=== PATIENT | female | born 1945 | race Caucasian/White ===

== ENCOUNTER 2017-02-12 17:48 | Emergency (ER) | payer MEDICARE, OTHER ==
[~2017-02-12] VITALS: Ht 165.1 cm; Wt 72.0 kg
[~2017-02-12 17:48] MED LIST: ARIP2TAB10 PO; ASPI-973 PO; CALC600T12 PO; CHOL200047 PO; FOLI1TAB50 PO; LISI-567 PO; MELA1TAB16 PO; METO25TA6 PO; POTA10TA7 PO; QUET300T PO; TOPI50TA88 PO; WARF7.5T4 PO
[2017-02-12 17:54] VITALS: BP 179/78; RESP 18; O2SAT 99
--- NOTE | 2017-02-12 19:01 | ED.REPORT ---
HPI-General Illness Date of Service Feb 12, 2017 ED Provider: Brayden Norton Patient is a 71 year old female on Warfarin who presents to the ED after being referred by urgent care complaining of a persistent, R sided nose bleed. She reports that she has been blowing her nose fairly frequently which may have caused her nosebleed. She had her INR checked today and it was approximately 3. While she was waiting to be seen, her nose stopped bleeding. She denies headache , lightheadedness, or any other symptoms. Nursing Notes Stated Complaint: BLOODY NOSE Chief Complaint: ENT & Mouth Nursing Notes Reviewed: Yes Allergies: Coded Allergies: No Known Allergies (Unverified , 12/19/16) Scheduled Aripiprazole (Abilify) 2 Mg Tablet 2 MG PO DAILY Aspirin (Aspirin) 81 Mg Tablet 81 MG PO DAILY Calcium Carbonate (Calcium) 600 Mg Tablet 600 MG PO DAILY Cholecalciferol (Vitamin D3) (Vitamin D3) 2,000 Unit Capsule 2,000 UNIT PO DAILY Lisinopril (Lisinopril) 20 Mg Tablet 20 MG PO DAILY Melatonin/Pyridoxine (Melatonin 5 mg Tablet) 1 Each Tablet 1 EACH PO HS Metoprolol Tartrate (Metoprolol Tartrate) 25 Mg Tablet 25 MG PO BID Mv,Ca,Min/Iron Fum/FA/Vit K (Multi For Her Tablet) 1 Each Tablet 1 EACH PO DAILY Potassium Chloride ER (Klor-Con 10) 10 Meq Tablet 10 MEQ PO DAILY Quetiapine Fumarate (Seroquel) 300 Mg Tablet 300 MG PO HS Topiramate (Topiramate) 50 Mg Tablet 50 MG PO QAM Topiramate (Topiramate) 50 Mg Tablet 100 MG PO QPM Warfarin Sodium (Warfarin Sodium) 7.5 Mg Tablet 7.5 MG PO DAILY General Time Seen by MD: 19:01 Chief Complaint Other (Nose bleed) Hx Obtained From: Patient Arrived By: Walk-in Sudden in Onset?: Yes Recent Healthcare: Recent doctor visit Similar Sx Previous: Yes Past Medical History Past Medical History Notes: On Warfarin Past Medical History Bipolar HTN Carcinogenic lung tumor Reports: Cancer (Uterine) Reports: Atrial fibrillation Past Surgical History Bowel obstruction Lung tumor removal Reports: Hysterectomy Smoking History Former Smoker Ambulatory Status Independent Review of Systems Full Review of Systems Ears / Nose / Throat: Reports: Nose bleeding Neurologic: Denies: Headache, Lightheaded Complete sys rev & neg: except as marked. Physical Exam Vital Signs Vital Signs Date Time Temp Pulse Resp B/P Pulse Ox O2 Delivery O2 Flow Rate FiO2 02/12/17 19:26 61 18 180/78 99 Room Air 02/12/17 17:54 36.1 58 18 179/78 99 Room Air Initial VS: Reviewed General/Constitutional: Well-developed, Well-nourished Head / Eyes: Atraumatic, Normocephalic Neck: Full range of motion Respiratory: No respiratory distress Abdomen / GI: Soft, Non-tender Skin: Warm, Dry Neurologic: Alert, Oriented, Nonfocal Psychiatric: Mood/affect normal, Behavior normal, Normal thought content ENT: Nose exam NL, No sinus tenderness Re-Eval/Medical Decision Med Decision/Clinical Course All bleeding has stopped and Ayana looks well. She is mildly hypertensive but this came down with observation. She declined having a packing placed or having any further labs. Her INR was drawn today was 2.5. She will return if she has any other bleeding. I will give her ear nose and throat referral for possible cautery. Time of Eval: 19:04 Re-Evaluation/Progress Note: Discussed plan for discharge and plan for if nosebleed presents again. Patient understands and agrees with plan. All questions addressed at this time. Counseled Regarding: Diagnosis, Need for follow-up, When/why to return to ED Discharge & Departure Primary Impression: Epistaxis Additional Impression: Warfarin-induced coagulopathy Disposition: Home Patient Instructions: Epistaxis (ED) Additional Instructions: You may continue to take your warfarin as directed. However if you begin bleeding again then pinch off your nostril and come back to the emergency department and we will check more labs and place the packing as we discussed. Otherwise follow-up with your primary care physician or the referred ear nose and throat doctor to have your nose checked next week. Do not hesitate to return if any problems or any worsening symptoms. Referrals: Surendra Barrientos MD (PCP) Dino Mason MD Scribe Attestation Portions of this note were transcribed by Jacky Cerna. I, Dr. Norton personally performed the history, physical exam and medical decision-making; I reviewed and confirmed the accuracy of the information in the transcribed note. Signed by: Jacky Cerna 02/12/17, 1917 copies to: Surendra Barrientos MD, Todd P DO Feb 12, 2017 19:01 JACKY CERNA Feb 12, 2017 19:10
[2017-02-12 19:26] VITALS: BP 180/78; PULSE 61; RESP 18; O2SAT 99
== END 2017-02-12 19:20 | disposition home or self-care (01) ==
LOC: SED 17:48
DX: R04.0 Epistaxis (principal); I10 Essential (primary) hypertension; F31.9 Bipolar disorder, unspecified; I48.91 Unspecified atrial fibrillation; Z85.41 Personal history of malignant neoplasm of cervix uteri; Z79.01 Long term (current) use of anticoagulants; Z87.891 Personal history of nicotine dependence; Z79.82 Long term (current) use of aspirin

== ENCOUNTER 2017-05-15 12:29 | Inpatient (IN) | payer MEDICARE, OTHER ==
[~2017-05-15] VITALS: Ht 165.1 cm; Wt 71.7 kg
[~2017-05-15 12:29] MED LIST changes: -LISI-567 PO; +LISI30TA5 PO
[2017-05-15 12:34] VITALS: BP 210/93; PULSE 59; RESP 10; O2SAT 100
--- NOTE | 2017-05-15 12:45 | ED.REPORT ---
HPI-General Illness Date of Service May 15, 2017 ED Provider: Benito Clayton MD Patient is a 71 year old female with a history of lung cancer, hypertension and atrial fibrillation who presents to the ED complaining of chest pain. Primarily on the left side of her chest and not really radiating. Mild in severity. She thinks it started yesterday. Associated symptoms include left leg swelling that has been that way for the past 6 months and bilateral arm pain that she attributes to a fall she had 2 days ago. She's not sure if the chest pain is related to the fall. Patient denies shortness of breath or lightheadedness before her fall. She states that she took her blood pressure this morning and it was elevated (200/70). After talking to a nurse, her son told her to come to the ED. Patient initially thought to be on warfarin but it sounds as if she's stopped this recently. Hx somewhat limited as patient is a poor historian and story seems to change at times. Nursing Notes Stated Complaint: HIGH BLOOD PRESSURE,PAIN IN ARMS Chief Complaint: General Complaint Nursing Notes Reviewed: Yes Allergies: Coded Allergies: No Known Allergies (Unverified , 05/15/17) Scheduled Aripiprazole (Abilify) 2 Mg Tablet 2 MG PO HS Aspirin (Aspirin) 81 Mg Tablet 81 MG PO DAILY Lisinopril (Lisinopril) 30 Mg Tablet 30 MG PO DAILY Melatonin/Pyridoxine (Melatonin 5 mg Tablet) 1 Each Tablet 1 EACH PO HS Metoprolol Tartrate (Metoprolol Tartrate) 25 Mg Tablet 25 MG PO BID Potassium Chloride ER (Klor-Con 10) 10 Meq Tablet 10 MEQ PO DAILY Quetiapine Fumarate (Seroquel) 300 Mg Tablet 300 MG PO HS Topiramate (Topiramate) 50 Mg Tablet 50 MG PO QAM Topiramate (Topiramate) 50 Mg Tablet 100 MG PO QPM Warfarin Sodium (Warfarin Sodium) 7.5 Mg Tablet 7.5 MG PO DAILY General Time Seen by MD: 12:44 Chief Complaint Chest pain Hx Obtained From: Patient Arrived By: Walk-in Sudden in Onset?: Yes Onset Occurred: Yesterday Symptom Duration: Since onset Location: : Chest Quality: Painful Radiation: : Does not radiate Severity: Current: Mild Associated with: Denies: Difficulty breathing, Loss of consciousness Pertinent Negative: Pt denies other symptoms Pertinent Negative: Exacerbated by nothing Recent Healthcare: No recent hospitalization, Recent doctor visit Similar Sx Previous: No Past Medical History Past Medical History Notes: On Warfarin previously, recently stopped. Denies any pertinent family history. Past Medical History Bipolar HTN Carcinogenic lung tumor/lung cancer Reports: Atrial fibrillation Past Surgical History Bowel obstruction Lung tumor removal Reports: Hysterectomy Smoking History Former Smoker Social History Alcohol Use: "Social" Drug Use: Denies drug use Other Social History: Good social support (Lives with friends) Ambulatory Status Independent Review of Systems Full Review of Systems Constitutional: Denies: Chills, Fever Respiratory: Denies: Non-productive cough, Shortness of breath Cardiovascular: Reports: Chest pain Musculoskeletal: Reports: Extremity swelling Neurologic: Denies: Lightheaded Complete sys rev & neg: except as marked. Physical Exam Constitutional: Well-developed, well-nourished elderly female sitting up in bed. Not diaphoretic. Head: Normocephalic and atraumatic. Mouth/Throat: Oropharynx is clear and moist. No oropharyngeal exudate. Eyes: EOM are normal. Pupils are equal, round, and reactive to light. Neck: Supple, no tracheal deviation. No cervical spine tenderness. Cardiovascular: Normal rate, regular rhythm. Equal and intact distal pulses throughout. Pulmonary/Chest: Effort normal and breath sounds normal. No respiratory distress. Abdominal: Soft. No distension. There is no tenderness, rebound, or guarding. Bowel sounds present. Musculoskeletal: Range of motion grossly intact, moving all extremities. Trace edema to BLE. Neurological: AOx3. Grossly nonfocal exam. Strength and sensation intact and equal to bilateral upper and lower extremities. Skin: Warm and dry, no rashes or pallor appreciated. Ecchymosis to the left forearm that is improving. Psychiatric: Appropriate mood and affect. Behavior appears normal. Vital Signs Vital Signs Date Time Temp Pulse Resp B/P Pulse Ox O2 Delivery O2 Flow Rate FiO2 05/15/17 15:28 61 16 156/68 98 Room Air 05/15/17 14:28 56 15 176/72 98 Room Air 05/15/17 13:26 36.8 57 16 199/78 100 05/15/17 12:34 37.1 59 10 210/93 100 Room Air Initial VS: Reviewed Interpretation & Diagnostics Lab Results Interpretation Result Diagram: 05/16/17 0350 05/16/17 0350 Test 6/29/17 13:10 Neutrophils (%) (Auto) 62.1% (40-74) Lymphocytes (%) (Auto) 24.5% (14-46) Monocytes (%) (Auto) 11.4% (4-12) Eosinophils (%) (Auto) 1.2% (0-5) Basophils (%) (Auto) 0.6% (0-3) Prothrombin Time 10.0sec (8.1-12.5) Prothromb Time International Ratio 0.94ratio Magnesium Level 2.0mg/dL (1.6-2.6) Pro-B-Type Natriuretic Peptide 1448pg/mL (0-301) ECG Interpretation ECG Interpretation: Non specific ST changes T waves more prominent in anterior leads minimal ST elevation in inferior leads Prolonged SD interval Probable left atrial enlargement left ventricular hypertrophy inferior infarct, old Time: 12:55 Interpreted by: ED physician Normal ECG Interpretation: Normal rate (58), Normal sinus rhythm X-Ray Chest Interpretation Chest Xray Interpretation: IMPRESSION: 1. Linear scarring redemonstrated in the right lung base without acute cardiopulmonary disease. Dictated by: Gustavo Alaniz M.D. on 05/15/2017 at 13:21 Approved by: Gustavo Alaniz M.D. on 05/15/2017 at 13:22 View: Portable, 1 view Interpretation / Wet Read by: Interpret - Radiologist CT Head Interpretation IMPRESSION: 1. No acute intracranial process. 2. Moderate atrophy and chronic microvascular ischemic changes. Dictated by: Kaela García M.D. on 05/15/2017 at 15:26 Approved by: Kaela García M.D. on 05/15/2017 at 15:34 Interpretation / Wet Read by: Interpret - Radiologist CT Chest Interpretation IMPRESSION: 1. No evidence of pulmonary embolism. No dissection. 2. No effusions or consolidation. Dictated by: Kaela García M.D. on 05/15/2017 at 15:35 Approved by: Kaela García M.D. on 05/15/2017 at 15:41 Study type: CT pulm angiogram Interpretation / Wet Read by: Interpret - Radiologist Re-Eval/Medical Decision Med Decision/Clinical Course In summary, 71 yo F presenting to the ED for evaluation of vague L sided chest pain over the past day or two in the setting of higher blood pressure than usual. Only complaining of mild discomfort upon arrival, though she is somewhat of a poor historian and occasionally inconsistent with respect to her story. Systolic BPs in the 200s upon arrival. Given her recent falls, CT scan of her head was obtained and negative for acute intracranial abnormality. EKG does demonstrate some ST elevation in the inferior leads as well as more prominent T waves anteriorly as compared with previous; initial troponin 0.69. With her elevated BP and chest pain, decision made to obtain a CT angiogram to ensure no evidence of dissection - this was negative for aortic dissection or PE. Consults as per below; appreciate cardiology involvement. Patient started on heparin gtt here in the ED for acute coronary syndrome. I suspect that her hypertension is contributing to her acute coronary syndrome; started on nitroglycerin gtt shortly after initial assessment here in the ED. Admitted for further management and evaluation including of her hypertension, likely cardiac cath. Patient agreeable to plan, no further questions. Time of Eval: 16:00 Patient Status: Condition improved Re-Evaluation/Progress Note: Discussed results and plan for admit. Patient understands and agrees to plan. All questions were addressed. Consultation #1: Referral / Consult Name: Paul Benitez MD Consulted With: Cardiology Call Returned at: 13:32 Note: Consult with Dr. Benitez, who states that the EKG does not appear to be c/w STEMI Consultation #2: Referral / Consult Name: Paul Benitez MD Consulted With: Cardiology Call Returned at: 14:15 [employer] Hand: Agrees with eval, Agrees with plan Note: Consult with Dr. Benitez, who recommends CT. If negative, recommends heparin. Consultation #3: Referral / Consult Name: Karan Mason MD Consulted With: Hospitalist Call Returned at: 16:02 [employer] Hand: Agrees with eval, Agrees with plan, Accepts admit Counseled Regarding: Diagnosis, Lab results, Need for admission Discharge & Departure Primary Impression: NSTEMI (non-ST elevated myocardial infarction) Additional Impressions: Elevated troponin Hypertensive emergency Disposition: ADMITTED TO HOSPITAL Discharge Condition All VS Reviewed: Yes Condition: Stable Referrals: Surendra Barrientos MD (PCP) Crit Care Except Billable Proc Time Spent: 75-104 minutes Services Performed: Patient management by me, Time spent at bedside, Reviewing test results, Reviewing imaging, Discussing patient care, Documentation in record Critical Care Notes: Please see CELSO. Loree Attestation Portions of this note were transcribed by Roxanne Nicole. I, Dr. Clayton personally performed the history, physical exam and medical decision-making; I reviewed and confirmed the accuracy of the information in the transcribed note. Signed by: Loree Nascimento, 05/15/17 and 1610 copies to: Surendra Barrientos MD, William B MD May 15, 2017 12:45 Елена Nicole May 15, 2017 13:40 Елена Nicole May 15, 2017 13:40 Dictated by: Kaela García M.D. on 05/15/2017 at 15:35 Approved by: Kaela García M.D. on 05/15/2017 at 15:41 Study type: CT pulm angiogram Interpretation / Wet Read by: Interpret - Radiologist Re-Eval/Medical Decision Med Decision/Clinical Course Labs: CBC Hgb 11.7/MCHC 30.6/RDW 15.7 CMP: BUN 32/Ern-P-Hwschctvlpe Pept 1448 Trop .69 Time of Eval: 16:00 Patient Status: Condition improved Re-Evaluation/Progress Note: Discussed results and plan for admit. Patient understands and agrees to plan. All questions were addressed. Consultation #1: Referral / Consult Name: Paul Benitez MD Consulted With: Cardiology Call Returned at: 13:32 Note: Consult with Dr. Benitez, who states that the EKG does not appear acutely ischemic. Consultation #2: Referral / Consult Name: Paul Benitez MD Consulted With: Cardiology Call Returned at: 14:15 [employer] Hand: Agrees with eval, Agrees with plan Note: Consult with Dr. Benitez, who recommends CT. If negative, recommends heprain. Consultation #3: Referral / Consult Name: Karan Mason MD Consulted With: Hospitalist Call Returned at: 16:02 [employer] Hand: Agrees with eval, Agrees with plan, Accepts admit Counseled Regarding: Diagnosis, Lab results, Need for admission Discharge & Departure Primary Impression: NSTEMI (non-ST elevated myocardial infarction) Additional Impression: Elevated troponin Disposition: ADMITTED TO HOSPITAL Discharge Condition All VS Reviewed: Yes Condition: Stable Referrals: Surendra Barrientos MD (PCP) Colinibbaron Attestation Portions of this note were transcribed by Roxanne Nicole. I, Dr. Clayton personally performed the history, physical exam and medical decision-making; I reviewed and confirmed the accuracy of the information in the transcribed note. Signed by: Loree Nascimento, 05/15/17 and 1610 copies to: Surendra Barrientos MD,Benito Kowalski MD May 15, 2017 12:45 Елена Nicole May 15, 2017 13:40
[2017-05-15 13:19] LABS: BASOPHILS % (AUTO) 0.6 % (0-3); EOSINOPHILS % (AUTO) 1.2 % (0-5); MONOCYTES % (AUTO) 11.4 % (4-12); Mean Corpuscular Hemoglobin 29.2 pg (27.0-35.0); Mean Corpuscular Volume 95.3 fL (81-100); NEUTROPHILS % (AUTO) 62.1 % (40-74); Platelet Count 162 bil/L (150-400)
--- NOTE | 2017-05-15 13:24 | DRSVH ---
PROCEDURE: X-RAY CHEST ONE VIEW, PORTABLE ([id number]) INDICATIONS: BUE pain, HTN TECHNIQUE: One view of the chest was acquired. COMPARISON: [facility], CT, CT CHEST WO CON, 05/08/2017, 13:08. [facility], CR, XR CHEST 1VW (PORTABLE), 12/19/2016, 12:08. FINDINGS: Surgical changes and devices: There are surgical sutures in the right lung redemonstrated.. Lungs and pleura: No pleural effusions or pneumothorax. Linear opacity is again demonstrated in the right lung base corresponding to scarring seen on the recent CT. No acute consolidation. Mediastinum: Mediastinal contours appear unchanged. Heart size is normal. Bones and chest wall: No suspicious bony lesions. Overlying soft tissues appear unremarkable. IMPRESSION: 1. Linear scarring redemonstrated in the right lung base without acute cardiopulmonary disease. Dictated by: Gustavo Alainz M.D. on 05/15/2017 at 13:21 Approved by: Gustavo Alaniz M.D. on 05/15/2017 at 13:22
[2017-05-15 13:26] VITALS: BP 199/78; PULSE 57; RESP 16; O2SAT 100
[2017-05-15 14:00] LABS: TROPONIN T 0.69 ug/L (0.0-0.011)
[2017-05-15 14:28] VITALS: BP 176/72; PULSE 56; RESP 15; O2SAT 98
[2017-05-15] MEDS ORDERED: Nitroglycerin 50 mg/250 mL D5W 50,000 MCG in IV Premix 1 EACH IV ONE (14:36)
[2017-05-15] MEDS ORDERED: 0.9% Sodium Chloride 1,000 ML IV ONE (14:36)
[2017-05-15] MEDS ORDERED: Nitroglycerin 50 mg/250 mL D5W Premix IV SCH (14:45)
[2017-05-15 15:28] VITALS: BP 156/68; PULSE 61; RESP 16; O2SAT 98
--- NOTE | 2017-05-15 15:36 | DRSVH ---
PROCEDURE: CT BRAIN WITHOUT CONTRAST ([id number]) INDICATIONS: chest pain, elev trop; eval PE, less likely dissec TECHNIQUE: Noncontrast 4.5 mm thick angled axial sections acquired from the foramen magnum to the vertex, with c oronal reformats. COMPARISON: [facility], CT, BRAIN W/O CONTRAST, 01/27/2015, 15:13. FINDINGS: Image quality: Excellent. CSF spaces: Basal cisterns are patent. No extra-axial fluid collections. The ventricles are symmet rafy in size and shape. Brain: No intracranial bleeds or masses. There is cerebral volume loss for age, with resultant vent ricular and sulcal prominence. There are periventricular and deep white matter chronic small vessel ischemic changes. There is intracranial internal carotid artery atherosclerosis. Old right frontal ischemia as noted. Skull and face: Calvarium and visualized facial bones appear intact, without suspicious lesions. Sinuses: Visualized sinuses and mastoids are clear. IMPRESSION: 1. No acute intracranial process. 2. Moderate atrophy and chronic microvascular ischemic changes. Dictated by: Kaela García M.D. on 05/15/2017 at 15:26 Approved by: Kaela García M.D. on 05/15/2017 at 15:34
--- NOTE | 2017-05-15 15:43 | DRSVH ---
PROCEDURE: CT ANGIO CHEST PULMONARY EMBOLISM ([id number]) INDICATIONS: chest pain, elev trop; eval PE, less likely dissec TECHNIQUE: After the administration of intravenous contrast, 2 mm thick sections acquired from the pulmonary api lora to the posterior costophrenic angles. 3-dimensional maximum intensity projection (MIP) coronal a nd sagittal reformats were then acquired through the thorax. For radiation dose reduction, the follo wing was used: automated exposure control, adjustment of mA and/or kV according to patient size. COMPARISON: [facility], CT, CT CHEST WO CON, 05/08/2017, 13:08. FINDINGS: Image quality: Excellent. Pulmonary arteries: Pulmonary arteries are normal in size, and demonstrate no intraluminal filling d efects to suggest central pulmonary embolism. Unchanged 2 mm nodule is present in the right upper lobe on series 9 image 22. The previously identif ied rounded nodular opacity along the right cardiac border is unchanged. Lungs and pleura: Lungs are clear. No pleural effusions or pneumothorax. Central and peripheral ai rways are patent. Mediastinum: Heart size is normal, with trace pericardial effusion. No mediastinal or hilar adenopa thy. Thoracic aorta is normal in caliber and enhancement. Esophagus is normal in caliber, without h iatal hernia. Bones and chest wall: No suspicious bony lesions. Ribs and thoracic spine appear intact throughout. Thyroid gland is unremarkable. No axillary or supraclavicular adenopathy. Abdomen: Visualized upper abdominal solid organs appear normal in the early arterial phase of enhanc ement. IMPRESSION: 1. No evidence of pulmonary embolism. No dissection. 2. No effusions or consolidation. Dictated by: Kaela García M.D. on 05/15/2017 at 15:35 Approved by: Kaela García M.D. on 05/15/2017 at 15:41
[2017-05-15] MEDS ORDERED: Heparin 25K Unit/500mL 0.45 NS 25,000 UNIT in IV Premix 1 EACH IV ONE (15:55)
[2017-05-15] MEDS ORDERED: Heparin 5,000 Unit/mL Inj IVPUSH ONE (15:55)
[2017-05-15] MEDS: Lactated Ringer's 1,000 ML IV SCH (16:03)
[2017-05-15] MEDS ORDERED: Ondansetron 2 mg/mL 2 mL Inj IVPUSH PRN (16:20)
[2017-05-15] MEDS ORDERED: Alum-Mag Hydrox-Simeth 30 mL Suspension PO PRN (16:20)
[2017-05-15] MEDS ORDERED: Heparin 25K Unit/500mL 0.45 NS 25,000 UNIT in IV Premix 1 EACH IV SCH (16:20)
[2017-05-15] MEDS ORDERED: Polyethylene Glycol (PEG) 17 Gm Powder PO PRN (16:20)
[2017-05-15] MEDS ORDERED: Heparin 5,000 Unit/mL Inj IVPUSH PRN (16:20)
[2017-05-15] MEDS: Sodium Chloride LOK Flush 10 mL Syringe IVFLUSH SCH (16:30)
[2017-05-15 17:16] LABS: INR 0.94 ratio
--- NOTE | 2017-05-15 18:39 | PCM.HPMED ---
Subjective Date of Service May 15, 2017 Primary Provider: Admitting Physician: Karan Mason MD Primary Care Physician: Surendra Barrientos MD Attending Physician: Karan Mason MD Admit Status: From the Emergency Department, [facility] Telemetry Chief Complaint: Chest pain after fall 2 days ago. Elevated blood pressure today when checked on home blood pressure cuff. History of Present Illness: This is a somewhat vague 71-year-old female who presented to the ER today. She checked her blood pressure at home today and had a BP with a systolic of 200. For this reason she came to the emergency department. She does note some intermittent chest pain with a fall 2 days ago. At that time she apparently got up at night to go the bathroom it was dark and she tripped and fell hitting her head. She denies any loss of consciousness from her fall but has been somewhat sore. She does describe a vague chest pain. She cannot say if this pain is positional or pleuritic. It does not seem to get worse with exertion. It does not radiate to the neck or arm. She denies associated cough, palpitations, nausea or diaphoresis. She has no known history of CAD but does have a history of hypertension and atrial fibrillation. She denies any headache. In the ED she was found to have left leg edema and right leg edema which is both chronic for her as well as a relatively normal ECG with elevated troponin. The case was discussed with Dr. De La Garza cardiology and recommendations were made for heparin drip. She denies any chest pain at the time of interview. She also denies nausea, or dyspepsia, or diarrhea. No difficulty with urination , including dysuria or hematuria. Review of Systems: All else reviewed and otherwise unremarkable except as noted in history of present illness Allergies Coded Allergies: No Known Allergies (Unverified , 05/15/17) Home Medications Aripiprazole (Abilify) 2 Mg Tablet 2 MG PO HS Aspirin (Aspirin) 81 Mg Tablet 81 MG PO DAILY Lisinopril (Lisinopril) 30 Mg Tablet 30 MG PO DAILY Melatonin/Pyridoxine (Melatonin 5 mg Tablet) 1 Each Tablet 1 EACH PO HS Metoprolol Tartrate (Metoprolol Tartrate) 25 Mg Tablet 25 MG PO BID Potassium Chloride ER (Klor-Con 10) 10 Meq Tablet 10 MEQ PO DAILY Quetiapine Fumarate (Seroquel) 300 Mg Tablet 300 MG PO HS Topiramate (Topiramate) 50 Mg Tablet 50 MG PO QAM Topiramate (Topiramate) 50 Mg Tablet 100 MG PO QPM Warfarin Sodium (Warfarin Sodium) 7.5 Mg Tablet 7.5 MG PO DAILY PMH Essential hypertension Bipolar History of lung cancer Atrial fibrillation, presumed chronic. She has been off Coumadin for a month or 2 after a recent fall. Surgical History Release of small bowel obstruction Excision of lung mass no details available. Family History Negative for CAD Social History Hx Alcohol Use: Yes ("just socially") Hx Substance Use: No Hx Tobacco Use: Yes Smoking Status: Former Smoker Living Arrangement: with Friends/Roommate Exam Vital Signs Vital Sign - Last Date Time Temp Pulse Resp B/P Pulse Ox O2 Delivery O2 Flow Rate FiO2 05/15/17 17:23 59 14 158/68 98 Room Air 05/15/17 13:26 36.8 Exam Oriented 3. No distress. Fluent speech. Affect, slow to speak and slow to answer questions. Normal skull. Normal nose and ears. Anicteric sclera, symmetric pupils Oropharynx is unremarkable, no facial droop. Neck is supple, normal thyroid. No adenopathy. Lungs are clear, normal effort rate. Heart is regular without murmur gallop or rub. Abdomen soft, nondistended or tender. Extremities are normal. Bilateral 1+ edema, said to be chronic. Good radial and pedal pulses. Skin is free of rash, lesions. No petechiae or ecchymosis. Joints are grossly normal. Cranial nerves are grossly normal. Motor strength is normal in all extremities. Normal muscular tone. Lab and Diagnostics Labs Troponin is 0.690, BNP is 1445 Result Diagram: 05/15/17 1310 05/15/17 1310 X-Rays, CTs and MRIs CT pulmonary angiogram negative Chest x-ray negative Brain CT unremarkable 12-lead ECG Sinus tachycardia with LVH Assessment & Plan NSTEMI, POA. The patient was discussed with cardiology directly from the emergency department. The patient will be heparinized and loaded with Plavix and treated with dual antiplatelets, beta-blockade and atorvastatin. Patient will have troponins trended. The patient will have further recommendations made by cardiology for probable delayed coronary catheterization. The patient is also started on a nitroglycerin drip per cardiology recommendations. Hypertension, uncontrolled. POA. We will follow clinically with beta- blockade. The patient will also be on a nitroglycerin drip tonight per cardiology recommendations. Bipolar, POA. Resume usual medications after med rec is available Presumed chronic atrial fibrillation, POA. Follow clinically. Coumadin apparently has been off for one or 2 months. We will follow her rate control on beta blockade. History of lung cancer with resection, POA. We will obtain outside records from [facility] in [place]. Full resuscitation Inpatient status, length of stay over 2 nights Pain Evaluation: Adequate Pain Control Resuscitation Status: CPR: Attempt Resuscitation Time spent 40 minutes Karan Mason MD May 15, 2017 18:39
--- NOTE | 2017-05-15 19:59 | NUR ---
1830: Admit from ER to PSYCHIATRIC 2021 Pt Alert; Ox3, SOLIZ, able to stand for weight & able to remove own shoes, & clothing. Son @ bedside; also pt's roommate "Arti". Denies chest pain, also denies lightheadedness, dyspnea, nausea. Initial VS: 180/78, 36.4po, HR 60 sinus rhythm 1st degree block. (reported to have atrial fib in ER earlier.) Heparin gtt started in ER per Cardiac protocol; reported to be started @ 1620, @ 1000 units/hr. 1944:Since pt denies cpn, held NTG Gtt initially upon arrival to PSYCHIATRIC (was @ 5mcg/hr); rechecked BP @ 1944: now 171/82 so restarted NTG Gtt @ 5mcg/min for BP management. Pt continues to be without chest pain or discomfort. P: Safety priority; Bed alarm Reyes on due to recent history of falls. Begin admit process.
[2017-05-15 22:10] VITALS: BP 176/81; PULSE 61; RESP 18; O2SAT 99
[2017-05-15] MEDS: ARIPiprazole 2 mg Tablet PO SCH (22:26)
[2017-05-15 23:28] LABS: APPEARANCE,URINE HAZY (CLEAR,HAZY); COLOR,URINE YELLOW (YELLOW); OCCULT BLOOD,URINE NEGATIVE (NEGATIVE); UROBILINOGEN,URINE NORMAL (NORMAL)
[2017-05-16] VITALS (18 sets, daily range): BP systolic 129–193; BP diastolic 53–111; PULSE 55–115; RESP 13–20; O2SAT 96–100
[2017-05-16] MEDS: Sodium Chloride LOK Flush 10 mL Syringe IVFLUSH SCH ×3 (00:30→16:30)
[2017-05-16] MEDS: Lactated Ringer's 1,000 ML IV SCH ×3 (03:26→22:03)
[2017-05-16 04:05] LABS: Mean Corpuscular Hemoglobin 29.5 pg (27.0-35.0); Mean Corpuscular Volume 95.2 fL (81-100)
[2017-05-16 04:46] LABS: TROPONIN T 1.22 ug/L (0.0-0.011)
--- NOTE | 2017-05-16 06:16 | NUR ---
UTI/BP Pt has straw colored foul smelling urine. UA sent and positive for UTI. Provider notified. Pt's BP remains hypertensive. Systolic while at rest in the high 160's, 180's with activity. Pt up to the BSC frequently throughout the night.
--- NOTE | 2017-05-16 09:35 | CONS ---
[address] [address] CONSULTATION REPORT PATIENT: EMILY MEDINA : 1945 MR#: [id number] ADMIT: 05/15/2017 JOB ID: [id number] DATE OF SERVICE: 05/15/2017 REQUESTED BY: CHIEF COMPLAINT: Chest discomfort. HISTORY OF PRESENT ILLNESS: The patient is a 71-year-old lady who came to the hospital because her blood pressure was markedly elevated. It was around 200. She checks her blood pressure on a daily basis. Normally, it is between 140-150. This was the reason she came to the emergency department. In the emergency department, she also complained of chest discomfort; hence, a cardiology consult. Apparently two days ago, she had tripped and fallen. There was no loss of consciousness. She was complaining of a vague chest discomfort. It does not appear to be exertional. It is nonradiating. She could not identify any relieving or aggravating factors. Troponin done in the hospital was minimally elevated at 0.690. Her EKG did not show any acute ischemic changes. At the time of interview, the patient was totally pain free. PAST MEDICAL HISTORY: Essential hypertension, history of lung cancer, atrial fibrillation. She used to be on Coumadin, but was off it. She also has history of bipolar disorder. She is status post excision of her lung mass and small bowel surgery in the past. MEDICATIONS AT HOME: Abilify, aspirin, lisinopril, melatonin, metoprolol, potassium, Seroquel, topiramate and warfarin. FAMILY HISTORY: Negative for premature coronary artery disease. PERSONAL HISTORY: Occasional alcohol use. Denies smoking for over 20 years. REVIEW OF SYSTEMS: Comprehensive review of system was done and is as per HPI, but more importantly, no recent strokes. No GI or bleeding. No upcoming surgeries. PHYSICAL EXAMINATION: Vitals: Pulse 60, blood pressure 160/70. Neck: Supple. No JVD. Chest: Clear. Heart: Sounds S1, S2 were irregular. No gallops. Abdomen: Soft. Extremities: 1+ edema bilaterally. NURSE QUALITY: Alert and oriented. DIAGNOSTIC STUDIES: Labs reviewed. Creatinine is normal at 0.99. Hemoglobin is 11.7. Chest CT angiogram did not show any evidence of PE. ASSESSMENT AND PLAN: This lady presents with elevated troponin. Her chest discomfort is atypical. In view of her history of elevated blood pressure, a CT angiogram was done both to rule out a pulmonary embolism (PE), as well as for a dissection. There was no evidence of either. HOSPITAL COURSE: Her troponin has gone up progressively and peaked at 1.28. I will be talking to the patient today discussing her treatment options, namely medical therapy versus early invasive therapy. Further management shall depend on the results of her decision. In the interim, I would continue the heparin, beta blockers and Plavix along with aspirin.
--- NOTE | 2017-05-16 10:11 | PROG NOTE ---
[address] [address] PROGRESS NOTE PATIENT: EMILY MEDINA : 1945 MR#: [id number] ADMIT: 05/15/2017 JOB ID: [id number] DATE: 05/16/2017 CHIEF COMPLAINT: Abnormal blood pressure. SUBJECTIVE: Overnight, patient had no chest discomfort, no shortness of breath. She has no complaints today. The troponin T was elevated at 1.2 and Cardiology consulted, assisted with management. Patient was seen yesterday by Dr. Benitez who recommended anticoagulation for treatment of non-STEMI. Patient is tolerating anticoagulation well with no bleeding. OBJECTIVE: Vital signs were reviewed. Well-nourished woman in no apparent distress. Appears somewhat distant with a flat affect. Eyes: No scleral icterus. Heart: Normal S1, S2. No murmurs. Lungs: Clear to auscultation. Abdomen: Soft, positive bowel sounds. No hepatosplenomegaly. Extremities: Warm and well perfused. No clubbing, cyanosis, or edema. Skin: No rashes or lesions. Multiple bruises are noted. Telemetry reviewed. Brief run of nonsustained VT noted; otherwise has been in normal sinus rhythm. ASSESSMENT AND PLAN: In summary, this is a 71-year-old woman with hypertension, paroxysmal atrial fibrillation off warfarin for the past few months, history of carcinoid tumor and bipolar disorder comes in after experiencing elevated blood pressure. Her blood pressure actually has been controlled. Troponin T peaked at 1.[address]-segment changes. I recommend keeping her presumably for non-STEMI. She would benefit from cardiac catheterization. Consent obtained. All questions answered. URIAHD
[2017-05-16] MEDS: cefTRIAXone Inj 1,000 MG in Dextrose 5% Minibag Plus 50 ML IV SCH (11:48)
[2017-05-16] MEDS ORDERED: Potassium Chloride Inj 20 MEQ in Dextrose 5% 250 ML IV ONE (11:50)
[2017-05-16] MEDS ORDERED: Heparin 1,000 Units/500 mL NS Premix IV ONE (12:45)
[2017-05-16] MEDS ORDERED: Heparin 10,000 Unit/1,000 mL NS Premix IV ONE (12:45)
[2017-05-16] MEDS ORDERED: Nitroglycerin 50,000 mcg/250 mL D5W Premix IV ONE (12:46)
[2017-05-16] MEDS ORDERED: fentaNYL-PF 50 mCg/mL 2 mL Inj ONE (13:28)
[2017-05-16] MEDS ORDERED: Heparin 1,000 Unit/mL 10 mL Inj ONE (13:44)
[2017-05-16] MEDS ORDERED: Adenosine Inj 40 ML IV ONE (13:55)
[2017-05-16] MEDS ORDERED: 0.9% Sodium Chloride 100 ML ONE (13:55)
--- NOTE | 2017-05-16 13:55 | NUR ---
Social Work: Initial Assessment D: Per EMR review, pt is a 71 year old female admitted for N Stemi. Pt is Medicare with [employer] for [employer]; pt has no LTC insurance or VA benefits. PCP is Surendra Barrientos MD. NOK is Monet Zimmer,son, . RA score not entered at this time. SACK DEPARTMENT SUPERVISOR met with pt and friend at bedside. Sw role explained and contact info provided. See initial assessment. Pt lives at home in [place] with her roommate (Arti Celaya [phone]). Pt uses a quad point cane at baseline, is I at baseline with ADLS and continues to drive. Pt has a [facility] with [facility]. Pt anticipates being able to discharge home via POV once medically stable. HH/SNF choice list provided- preference for HH would be [facility]. A: Pt who is I at baseline. P: evolving; Anticipate pt to discharge home via POV. SACK DEPARTMENT SUPERVISOR to continue to follow to assess for discharge needs and rule out possible home health for the pt. HERACLIO Sanches Addendum: 05/16/17 at 1358 by ROBY SMITH Amended: Links added.
[2017-05-16] MEDS ORDERED: Labetalol 5 mg/mL 20 mL Inj ONE (13:59)
--- NOTE | 2017-05-16 14:01 | PCM.PNMED ---
Subjective Date of Service May 16, 2017 Subjective Overnight: Nursing reports straw colored foul smelling urine collected and positive UA for UTI. Provider notified. Patient's BP remains hypertensive with systolic while at rest in the high 160's, 180's with activity. No other acute event. Today, patient denies any symptoms, CP, SOB, abdominal pain, or dysuria. She is sitting comfortably on the chair by the bed, but is very vague in her response and minimally interactive. Exam Vital Signs Vital Sign - Last Date Time Temp Pulse Resp B/P Pulse Ox O2 Delivery O2 Flow Rate FiO2 05/16/17 08:00 62 05/16/17 07:48 36.7 18 193/84 99 Room Air Intake and Output 05/15/17 05/15/17 05/16/17 Cumulative From/Thru 15:00 23:00 07:00 05/15/17 12:34 - 05/16/17 06:46 Intake Total 1000 ml 245 ml 1245 ml Output Total 1100 ml 1100 ml Balance 1000 ml -855 ml 145 ml Intake Oral 0 ml 0 ml IV Total 1000 ml 245 ml 1245 ml Output Urine Total 1100 ml 1100 ml Exam General: Alert and oriented 3. No distress. Fluent speech. Restricted affect , slow to speak and slow to answer questions. HEENT: NCAT, Normal skull. PEERLA, EOMI. Anicteric sclera, symmetric pupils. Oropharynx is unremarkable. Neck: supple, normal thyroid. No adenopathy. Lungs: clear, shallow effort, no wheezes or rales noted. Heart: regular rate and rhythm without murmur gallop or rub. Abdomen: soft, nondistended, and nontender. Normoactive bowel sound. Extremities: Bilateral mild nonpitting edema, said to be chronic.Good radial and pedal pulses. Neuro: Cranial nerves are grossly normal. Motor strength is normal in all extremities. Normal muscular tone. Psych: appears depressed with restricted affect. No hallucinations. IVs and Medications Medications Reviewed: Medications were reviewed in detail Lab and Diagnostics Result Diagram: 05/16/17 0350 05/16/17 0350 X-Rays, CTs and MRIs CT pulmonary angiogram negative Chest x-ray negative Brain CT unremarkable 12-lead ECG Sinus tachycardia with LVH Assessment & Plan 71-year-old woman with hypertension, paroxysmal atrial fibrillation off warfarin for the past few months, history of lung cancer s/p excision, and bipolar disorder presenting to [facility] for elevated blood pressure. Admitted for NSTEMI. NSTEMI, POA, acute. -Troponin T peaked at 1.[address]-segment changes. -EKG shows sinus tachycardia with LVH. -Cardiology consulted in the emergency department. Loading Plavix and heparin ggt initiated. -Continue nitroglycerin drip until Cath is done per cardiology recommendations -Dr. Reich saw the patient and recommended catheterization. Will follow up with cardiology for the report. -Continue dual antiplatelets therapy with ASA and Plavix. -Continue beta-blockade and atorvastatin. -Trend troponins. -Morphine and O2 available PRN. Hypertension, uncontrolled. POA. -Continue Metoprolol. -Will increase Lisinopril to 40mg and add Amlodipine 5mg after catheterization. -Will consider stopping nitroglycerin drip if her BP improves. Acute UTI, present on admisison, active. -Positive UA, urine culture pending. -No sign of sepsis. -Will continue Ceftriaxone IV. Day 1. Bipolar, POA. -Resume home Topamax and Abilify. Presumed chronic atrial fibrillation, POA. -Follow clinically. Rate controlled with Metoprolol currently. -Coumadin apparently has been off for 2 months. History of lung cancer with resection, POA. -Resume stable. Follow up as outpatient. Code status: FULL, confirmed with the patient. Inpatient status, length of stay over 2 nights. Dispo: likely in 1-2 days. Pain Evaluation: Adequate Pain Control Resuscitation Status: CPR: Attempt Resuscitation Attending Statement Patient seen and examined with house staff. Agree with all attached documentation. Saturnino Pyle DO May 16, 2017 11:54 Karan Mason MD May 19, 2017 07:39
[2017-05-16] MEDS ORDERED: Atropine 1 mg/10 mL (Code) Syringe ONE (14:04)
[2017-05-16] MEDS ORDERED: hydrALAZINE 20 mg/mL Inj ONE ×2 (14:16→14:27)
--- NOTE | 2017-05-16 14:48 | DI95 ---
[place] [address] INTERVENTIONAL CARDIAC CATHETERIZATION PATIENT: EMILY MEDINA : 1945 MR#: [id number] ADMIT: 05/15/2017 JOB ID: [id number] DATE: 05/16/2017 PATIENT PROFILE: The patient is a 71-year-old lady with history of hypertension. She presented with non ST elevated myocardial infarction. PROCEDURE: 1. Retrograde left heart catheterization. 2. Selective angiography. 3. Balloon angioplasty and stenting to the mid circumflex artery. 4. Fractional flow reserve to the major diagonal branch. 5. Left ventricular angiogram. VASCULAR CLOSURE DEVICE: Perclose. COMPLICATIONS: None. METHOD: Retrograde left heart catheterization was performed from the right groin under 1% lidocaine local anesthesia using a 6-Slovak sheath. Selective angiogram was performed in multiple projections, including cranial and caudal angulation with hand injected contrast via JL-4 and 3DRC catheter. Heparin 7000 units were given. A 6-Slovak CLS 3.5 guide was advanced to the left coronary ostium. A Run-through wire was placed inside the circumflex artery. The mid circumflex artery lesion was pre-dilated with a 2.5 x 15 mm balloon. A Xience 3.0 x 12 mm stent was placed inside the mid circumflex artery lesion and deployed at 10 atmospheres for 25 seconds. Final angiogram was obtained. The attention was then turned to the diagonal branch lesion. A flow wire was directed into this branch. Adenosine was given infusion IV. FFR was measured at 0.86. A 6-Slovak angulated pigtail catheter was advanced to left ventricle and left ventricular angiogram was performed in the 30 degree SANCHEZ view by injecting contrast at the rate of 10 cc/second for 3 seconds. This catheter was withdrawn. A femoral angiogram was performed before sheath removal, hemostasis was achieved by using Perclose device with the patient tolerating the procedure well. He was transferred to [facility] in good condition. TOTAL CONTRAST USED: 120 cc. FLUOROSCOPY TIME: 3.3 minutes. TOTAL RADIATION DOSE: 246 mGy. RESULTS: 1. Selective angiography: a. Left main coronary artery is normal. b. The left anterior descending artery has 30% stenosis in the proximal portion and 50% stenosis in the midportion at the takeoff of the major diagonal branch. The major diagonal branch is moderate size and has 60% stenosis at its origin. c. The circumflex artery has 90% stenosis in the midportion. d. The dominant right coronary artery has 30% stenosis in the midportion. 2. Balloon angioplasty and stenting was performed to the severe mid circumflex artery lesion by deploying one occluding stent (3.0 x 12 mm) to achieve an excellent angiographic result with RAFAEL-3 flow distally. 3. FFR of the proximal and major diagonal branch lesion is 0.86, which indicates nonhemodynamic significant stenosis. 4. Left ventricular angiogram demonstrated near-normal left ventricular systolic function (visually estimated ejection fraction 60%). The apical part of the anterior wall, apex and adjacent inferior wall akinetic. The remaining segments are hyperdynamic. 5. There is no gradient across the aortic valve on catheter withdrawal. 6. Aortic pressure is 207/85 mmHg. Left ventricular pressure is 209/4 mmHg. 7. Left ventricular end-diastolic is 33 mmHg. CONCLUSION: 1. Moderate disease of the left anterior descending and major diagonal branch. 2. 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 This was successfully treated with one occluding stent. 3. Left ventricular ejection fraction 60% with apical part of the anterior wall, apex and adjacent inferior wall akinetic. 4. LVEDP is 33 mmHg.
[2017-05-16] MEDS ORDERED: 0.9% Sodium Chloride 250 ML BOLUS IV PRN (15:10)
[2017-05-16] MEDS ORDERED: 0.9% Sodium Chloride 400 ML (4 HRS) IV ONE (15:10)
[2017-05-16] MEDS ORDERED: Sodium Chloride LOK Flush 10 mL Syringe IVFLUSH PRN (15:10)
[2017-05-16] MEDS ORDERED: Atropine 1 mg/10 mL (Code) Syringe IVPUSH PRN (15:10)
[2017-05-16] MEDS ORDERED: Ondansetron 2 mg/mL 2 mL Inj IVPUSH PRN (15:10)
[2017-05-16] MEDS ORDERED: 0.9% Sodium Chloride 1,000 ML IV ONE (15:13)
--- NOTE | 2017-05-16 15:35 | NUR ---
Received Received from pit laborer at 1445. VSS. SBP 130's on NTG at 40mcg/min. Denies pain. Approximately 4cm hematoma present. Sand bag placed per Dr. Celaya's request. Stated need to void and would have to go frequently. Juliana discussed and placed per protocol order and pt. request. Then noted hematoma slightly larger. pit laborer notified and held pressure and changed dressing. No change to this point. Continue to monitor per orders. Addendum: 05/16/17 at 1602 by HARDY GALLARDO RN Mony RILEY
--- NOTE | 2017-05-16 17:02 | NUR ---
Transfer Hematoma continuing to shrink, about nickel size now. 10lb sandbag on. Otherwise assessment. unchanged. Taking po well and no change in groin with HOB 20degrees. Dinner order placed. Report called to Chloe Maldonado RN. Transported to 2021 with family and all belongings [facility] bed in no distress at 1650.
--- NOTE | 2017-05-16 18:18 | NUR ---
Cardiac.. Has had no chest pain or SOB reported this shift. Nolberto activity well and was up in chair most of am. Was seen by Dr Celaya and pt taken to oil field laborer at 1300 and returned at 1700 post MARCIA. Pt continues to deny pain but did have some brief dizziness complaints that resolved spontaneously. B/P check finds pt to still be hypertensive. Will administer antihypertensives as ordered. Son Monet was updated and here during cath procedure.
[2017-05-16] MEDS: ARIPiprazole 2 mg Tablet PO SCH (21:07)
[2017-05-16] MEDS ORDERED: Diltiazem 5 mg/mL 5 mL Inj IVPUSH ONE (21:35)
[2017-05-17] VITALS (8 sets, daily range): BP systolic 102–124; BP diastolic 63–72; PULSE 69–115; RESP 18–22; O2SAT 96–98
[2017-05-17 03:20] LABS: Mean Corpuscular Hemoglobin 29.3 pg (27.0-35.0); Mean Corpuscular Volume 94.1 fL (81-100)
[2017-05-17 04:26] LABS: Magnesium 1.7 mg/dL (1.6-2.6)
[2017-05-17 04:27] LABS: TROPONIN T 0.731 ug/L (0.0-0.011)
--- NOTE | 2017-05-17 05:55 | NUR ---
Cardiac/Groin site Pt converted to Afib @ 1800, EKG confirms, MD notified and orders for 20mg Diltiazem IVP given, no anticoagulation at this time. Pt continues in Afib with HR 80's to 105's. Pt right groin soft, non-tender with no hematoma noted. Pt up to BSC and tolerated well. VSS.
[2017-05-17] MEDS: Lactated Ringer's 1,000 ML IV SCH ×3 (08:03→19:35)
[2017-05-17] MEDS: Sodium Chloride LOK Flush 10 mL Syringe IVFLUSH SCH ×4 (08:30→21:03)
[2017-05-17] MEDS: cefTRIAXone Inj 1,000 MG in Dextrose 5% Minibag Plus 50 ML IV SCH (08:43)
[2017-05-17] MEDS: Lisinopril 40 Tablet PO SCH (08:44)
--- NOTE | 2017-05-17 15:50 | PROG NOTE ---
[address] [address] PROGRESS NOTE PATIENT: EMILY MEDINA : 1945 MR#: [id number] ADMIT: 05/15/2017 JOB ID: [id number] DATE: 05/17/2017 SUBJECTIVE: The patient says she feels fine. Yesterday she underwent percutaneous coronary intervention. She has no complaints. Of note, on telemetry yesterday at about 8 p.m. she went into AFIB with RVR. She responded favorably to rate control medications. She says she cannot feel her heart when it goes into AFIB and she was quite surprised to learn that she is in AFIB right now. OBJECTIVE: Vital signs: Temperature 36.7, blood pressure 108/70 up to 124/68, pulse 79 up to 115 beats per minute, satting 98% on room air. Very pleasant woman. No apparent distress. Affect is more animated than yesterday. Eyes: No scleral icterus. Neck: Supple. No lymphadenopathy. No carotid bruits. Pulse is irregularly irregular. Abdomen: Soft, with positive bowel sounds. No hepatosplenomegaly. Extremities: Warm, well perfused. No clubbing, cyanosis, or edema. Skin: No rashes or lesions. Right common femoral artery vascular access site shows no bruit but some ecchymosis. LABORATORIES: Were reviewed. Her CBC today is stable. Creatinine is 0.8. Electrolytes are normal. Troponin-T peaked at 1.22. CURRENT MEDICATIONS: 1. Aspirin 81 mg daily. 2. Plavix 75 mg daily. 3. Lisinopril 40 mg daily. 4. Metoprolol tartrate 25 mg twice a day. 5. Amlodipine 5 mg daily. 6. Topamax. 7. Ceftriaxone. 8. Seroquel. 9. Abilify. 10. Lipitor 40 mg daily. ASSESSMENT: In summary, this is a 71-year-old woman with paroxysmal atrial fibrillation. It was triggered yesterday possibly by the stress half of her procedure. PLAN: We discussed increasing rate control. She was on 25 mg of metoprolol tartrate twice a day. I recommend 50 mg twice a day. I think it is reasonable to restart warfarin for stroke prevention. She is on this medication at home. While of course I understand there is a risk of falls, her primary care provider felt that she could take it safely, and I think it is reasonable for us to restart. I recognize the risk of bleeding is higher now that the patient is on dual antiplatelet therapy as well. We will monitor her CBC closely. Hypertension. Lisinopril was increased from 30 to 40 and amlodipine was added. Given all these medication adjustments I think it is reasonable to keep her until May 18. If she does well, then she can go home tomorrow. Thank you very much for the opportunity to participate in her care. LEANNA
--- NOTE | 2017-05-17 16:22 | PCM.PHAPRO ---
Progress Chest pain after fall 2 days ago. Elevated blood pressure today when checked on home blood pressure cuff. Date INR 0.94 INR change Warf Dose 7.5 Restarting home dose of 7.5 mg warfarin per day for a.fib. Pharmacy will continue to follow. Seth Wang Pharm.D May 17, 2017 16:22
[2017-05-17] MEDS ORDERED: Warfarin 5 MG, Warfarin 2.5 MG PO ONE ×2 (17:00)
--- NOTE | 2017-05-17 17:22 | PCM.PNMED ---
Subjective Date of Service May 17, 2017 Subjective Ayana Ponce is a 71-year-old woman with hypertension, paroxysmal atrial fibrillation off warfarin for the past few months, history of lung cancer s/p excision, and bipolar disorder presenting to [facility] for elevated blood pressure. Admitted for NSTEMI. Overnight: Patient converted into A fib and was given 20 mg of Cardizem IV x1 with good response. Today: The patient is feeling fine and denies any chest pain, pressure, palpitations. She denies any fevers, chills, nausea, vomiting or groin pain. The remainder of ROS is negative except as noted above Exam Vital Signs Vital Sign - Last Date Time Temp Pulse Resp B/P Pulse Ox O2 Delivery O2 Flow Rate FiO2 05/17/17 12:22 36.7 79 20 124/68 98 Room Air Intake and Output 05/16/17 05/16/17 05/17/17 Cumulative From/Thru 15:00 23:00 07:00 05/15/17 12:34 - 05/17/17 06:47 Intake Total 264 ml 300 ml 1809 ml Output Total 2500 ml 1425 ml 5025 ml Balance -2236 ml -1125 ml -3216 ml Intake Oral 300 ml 300 ml IV Total 264 ml 1509 ml Output Urine Total 2500 ml 1425 ml 5025 ml # Voids 6 6 Exam General: Alert and oriented 3. No distress. Fluent speech. Restricted affect , slow to speak and slow to answer questions. HEENT: NCAT, Normal skull. PEERLA, EOMI. Anicteric sclera, symmetric pupils. Oropharynx is unremarkable. Neck: supple, normal thyroid. No adenopathy. Lungs: clear, shallow effort, no wheezes or rales noted. Heart: regular rate and rhythm without murmur gallop or rub. Abdomen: soft, nondistended, and nontender. Normoactive bowel sound. Extremities: Bilateral mild nonpitting edema, said to be chronic.Good radial and pedal pulses. Groin: mild ecchymoses of right groin. Neuro: Cranial nerves are grossly normal. Motor strength is normal in all extremities. Normal muscular tone. Psych: appears depressed with restricted affect. No hallucinations. IVs and Medications Medications Reviewed: Medications were reviewed in detail Lab and Diagnostics Result Diagram: 05/17/17 0300 05/17/17 0300 X-Rays, CTs and MRIs CT ANGIO CHEST PULMONARY EMBOLISM IMPRESSION: 1. No evidence of pulmonary embolism. No dissection. 2. No effusions or consolidation. Dictated by: Kaela García M.D. on 05/15/2017 at 15:35 CT BRAIN WITHOUT CONTRAST IMPRESSION: 1. No acute intracranial process. 2. Moderate atrophy and chronic microvascular ischemic changes. Dictated by: Kaela García M.D. on 05/15/2017 at 15:26 X-RAY CHEST ONE VIEW, PORTABLE IMPRESSION: 1. Linear scarring redemonstrated in the right lung base without acute cardiopulmonary disease. Dictated by: Gustavo Alaniz M.D. on 05/15/2017 at 13:21 12-lead ECG Sinus tachycardia with LVH Assessment & Plan Ayana Ponce is a 71-year-old woman with hypertension, paroxysmal atrial fibrillation off warfarin for the past few months, history of lung cancer s/p excision, and bipolar disorder presenting to [facility] for elevated blood pressure. Admitted for NSTEMI. 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 -Troponin T peaked at 1.[address]-segment changes. -EKG shows sinus tachycardia with LVH. -Cardiology consulted in the emergency department. Loading Plavix and heparin ggt initiated. -Continue dual antiplatelets therapy with ASA and Plavix. -Continue beta-blockade and atorvastatin. -Morphine and O2 available PRN. Paroxysmal A fib, not rate controlled, present on admission -Continue warfarin, dosing per pharmacy -Increase metoprolol to 50 mg BID. Hypertension, uncontrolled. POA. -Continue Metoprolol. -Continue Lisinopril to 40mg, Amlodipine 5mg Acute UTI ruled out, present on admisison, active. -Culture presented with normal brandt. -Will stop antibiotics Bipolar, POA. -Resume home Topamax and Abilify. History of lung cancer with resection, POA. -Resume stable. Follow up as outpatient. Code status: FULL, confirmed with the patient. Inpatient status, length of stay over 2 nights. Dispo: Discharge home tomorrow. Resuscitation Status: CPR: Attempt Resuscitation Time spent 35 minutes Attending Statement I interviewed and examined the patient on rounds today. I agree with the assessment and plan as stated above. Yahaira Bland DO May 17, 2017 15:47 Stan Morris MD May 17, 2017 20:44
--- NOTE | 2017-05-17 17:26 | NUR ---
Cardiac/Groin site Tele: Afib 70s to 1-teens, denies CP/Pressure. Metoprolol given as ordered. R groin site c/d/i, distal pulses palpable. SBA to bathroom. Plan to d/c home tomorrow.
--- NOTE | 2017-05-17 17:44 | DRSVH ---
[facility] [address] [place] [address] Echocardiogram Report Name: EMILY MEDINA MStudy Date: 11/2016 Height: 65 in Hospital Exam Location: [facility] Weight: 17 5 lb Gender: Female BSA: 1.9 m2 : 1945 Age: 71 yrs BP: 108/70 mmHg Reason For Study: NSTEMI Ordering Physician: HOSPITALIST [facility] Performed By: Carmen Archuleta Referring Physician: Elmer Hospitalist Interpretation Summary Atrial fibrillation with controlled rate. Normal LV size; midl concentric LVH. Normal wall motion and LV systolic function. EF is 65-70%. LV is hyperdynamic. No significant valvular abnormalities. Mild LA enlargement; otherwise normal chamber sizes. There is incidental note made of atherosclerosis in descending aorta. Compared to prior study 12/31/2016 pt is no longer in sinus rhythm. Otherwise no significant changes have occurred. Procedure: A two-dimensional transthoracic echocardiogram with color flow and Doppler was performed. The study quality was technically adequate. Comparison is made with the echocardiogram of 12/31/2016. The patient was in atrial fibrillation with heart rates between 63-102 bpm during the exam. Left Ventricle: The left ventricle is normal in size. Proximal septal thickening is noted. Left ventricular wall thickness is mildly increased. There is no thrombus. The ejection fraction is estimated to be 70-75%. Diastolic function could not be accurately assessed due to atrial fibrillation. Right Ventricle: The right ventricle is normal in size and function. Atria: The left atrium is mildly dilated. Right atrial size is normal. There is no Doppler evidence for an interatrial shunt. Mitral Valve: The mitral valve is normal in structure and function. There is trace mitral regurgitation. Aortic Valve: The aortic valve is normal in structure and function. No aortic regurgitation is present. Tricuspid Valve: The tricuspid valve leaflets are thin and pliable. There is mild tricuspid regurgitation. The right ventricular systolic pressure is estimated at 27 mmHg assuming a right atrial pressure of 3 mm Hg. Pulmonic Valve: The pulmonic valve is not well visualized. Great Vessels: The aortic root is normal size. There is mild luminal irregularity and echogenicity in the abdominal aorta, suggestive of aortic atherosclerotic disease. The IVC is of normal diameter and collapses greater than 50% with a sniff. This suggests a low right atrial pressure of 3 mm Hg. Pericardium/ Pleura There is no pericardial effusion. MMode/2D Measurements & Calculations LVIDd: 4.3 cm RA long axis LVOT diam LVIDs: 2.6 cm LA A2 area: 24.2 cm FS: 39.4 % LA A4 area: 20.1 cm RA area Ao root diam IVSd: 0.96 cm LA length (vol): 5.6 cm : 3.0 cm LVPWd: 1.1 cm LA vol: 73.4 ml : 16.9 cm LA vol index RA vol: 45.3 ml RA : 24.3 mm2 IVC diam: 1.7 cm LV valdes. diameter/BSA LV sys. diameter/BSA RVD1 (basal) RVD2 (mid) (cm/m^2): 2.3 (cm/m^2): 1.4 : 2.0 cm TAPSE: 1.9 cm Doppler Measurements & Calculations Ao V2 max MV E max jayce Med Peak E' Jayce TR max jayce : 142.8 cm/sec : 92.6 cm/sec : 247.2 cm/sec Ao max P.2 mmHg E/E' med: 9.9 TR max PG Ao mean P.6 mmHg : 24.4 mmHg LVOT Max Jayce PA V2 max : 98.6 cm/sec : 76.9 cm/sec PA mean PG NAZANIN(I,D): 2.1 cm sev ratio: 0.69 PA Accel Time : 0.13 sec MV dec time: 0.19 sec Ao V2 mean LV V1 max PG PA V2 mean : 102.2 cm/sec : 48.7 cm/sec Ao V2 VTI: 29.7 cmLV V1 VTI: 20.5 cm NAZANIN(V,D): 2.1 cm2 NAZANIN indexed to BSA (cm^2/m^2): 1.1 Reading Physician:05:44 PM
[2017-05-17] MEDS: ARIPiprazole 2 mg Tablet PO SCH (20:57)
[2017-05-18 03:30] LABS: INR 0.98 ratio
[2017-05-18 04:10] VITALS: BP 130/67; PULSE 58; RESP 20; O2SAT 98
--- NOTE | 2017-05-18 05:42 | NUR ---
Cardiac/groin site Uneventful shift, patient passive but pleasant and cooperative, up ambulating with cane in room before bed, converted from A-Fib to NSR at 1999, denied chest pain this shift, right groin site dressing intact with old drainage noted, small amount bruising around right groin site site, denied pain, will continue to monitor. Addendum: 05/18/17 at 0549 by MICAELA BURCIAGA RN Amended: Links added.
--- NOTE | 2017-05-18 07:23 | PCM.PHAPRO ---
Progress Chest pain after fall 2 days ago. Elevated blood pressure today when checked on home blood pressure cuff. WARFARIN DOSING PER PHARMACY [facility] rtm DFF Date -May 18-May INR 0.94 0.98 INR change 0.04 Warf Dose 7.5 7.5 Will continue with home dosing of warfarin 7.5 mg with no complications noted. On heparin gtt for bridge. -Jagdish Steward, PharmD Jagdish Steward May 18, 2017 07:23
[2017-05-18 08:00] VITALS: BP 101/57; PULSE 76; RESP 24; O2SAT 95
--- NOTE | 2017-05-18 08:19 | NUR ---
Social Work Note: Continued Discharge Planning Data& Assessment: Per MD order, SW met with pt son to discuss home health preferences, list provided. Pt son explained his preference is for [facility]. Referral provided to Med with [facility], access provided. Pt son explained that if pt is discharged today, he is unable to pick pt up until after 2p.m. Pt son denies any other needs. No other discharge needs identified at this time. SW to continue to follow. Plan: Anticipated discharge home via POV with [facility] PT, RN, and [employer] CUST[employer]ER EXPERIENCE SPECIALIST to follow. Pt son denies any other needs. No other discharge needs identified at this time. SW to continue to follow. HERACLIO Araya
[2017-05-18] MEDS: Sodium Chloride LOK Flush 10 mL Syringe IVFLUSH SCH (08:30)
[2017-05-18 08:36] VITALS: PULSE 78
[2017-05-18] MEDS: Lisinopril 40 Tablet PO SCH (09:23)
--- NOTE | 2017-05-18 11:18 | PCM.DIMED ---
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 Paroxysmal A fib, not rate controlled, present on admission Hypertension, uncontrolled. POA. Acute UTI ruled out, present on admisison, active. Bipolar, POA. History of lung cancer with resection, POA. Medication Instructions Additional med instructions There are a few changes to your medications: - We increased the Lisinopril from 30 mg to 40mg. Stop taking the 30mg at home and start taking the new dose once daily. - We also increased the Metoprolol from 25mg to 50mg twice daily. - Take Plavix 75mg once daily. Continue the Aspirin 81mg daily. - Take Amlodipine 5mg once daily. - Take Atorvastatin 40mg daily. - Get the 30-day trial of Eliquis from your pharmacy and ask your primary care worker to get the insurance authorization for further refills. - Resume other home medications. Diet Discharge Diet: Heart Healthy Activity Discharge Activity: Home Health Phyical Therapy Call your provider Call your provider for: Fever or Chills, Bleeding, Chest pain, Weakness ( unilateral) Patient Instructions Patient Instructions - You were found to have a blockage in one of the heart artery and a stent was placed to clear to blockage. - There are a few changes to your medications. Please take them as directed. - We discussed about the risks and benefits of being on blood thinner vs. not on it. You agreed with resuming the blood thinner as you are more concerned of your risks of stroke. - Because you would like an unrestricted diet with more green, Eliquis might be a better option than the Warfarin. This drug is expensive if your insurance does not pay for it. However, we will give you a coupon for 30-day free trial. You can bring the coupon to your pharmacy to get the medication. If you insurance does not pay for it, please discuss with your doctor to see if you can switch to Warfarin instead. - You will get home david with physical therapy, nursing care, and bath aids for 4 weeks. If you need longer care, you will need to discuss with your primary care doctor. - Please follow up with your primary care doctor in 1 week. - You will need to follow up with a national account manager in 3-4 weeks as well. You can get the referral from your primary care doctor. - Continue to check your blood pressure daily. - If you develop chest pain, shortness of breath, headache, nausea, vomiting, or change in mental status, please go to the ER. Follow-up Provider: Surendra Barrientos MD Follow-up with PCP in: 1 week Stan Morris MD 05/19/17 1011: Discharge Instructions Attending's Statement I interviewed and examined patient on rounds today, and agree with the above plan. Saturnino Pyle DO May 18, 2017 10:42 Stan Morris MD May 19, 2017 10:11
[2017-05-18] MEDS ORDERED: ATOR40TA69 PO (11:22)
[2017-05-18] MEDS ORDERED: METO25TA6 PO (11:22)
[2017-05-18] MEDS ORDERED: APIX5TAB PO (11:22)
[2017-05-18] MEDS ORDERED: AMLO5TAB2 PO (11:22)
[2017-05-18] MEDS ORDERED: LISI40TA PO (11:22)
[2017-05-18] MEDS ORDERED: CLOP75TA28 PO (11:22)
--- NOTE | 2017-05-18 11:34 | NUR ---
Erica Signed HERACLIO Araya
--- NOTE | 2017-05-18 14:10 | NUR ---
D/C home.. has been up amb in room and showered and is hannah activity well without any chest pain or SOB.. R groin site remains bruised, but no bleed or hematoma noted. D/C instructions and meds reviewed with pt and son. D/C home with belongings, accompanied by son.
--- NOTE | 2017-05-18 14:56 | NUR ---
Social Work Note: Discharge Data& Assessment: Per pt is medically ready to discharge home via POV with [facility], RN and Bath aid to follow. Ayana Ponce is a 71 year old female admitted on 05/15/2017 for N STEMI. Per pt is medically improved. SW met with pt at bedside to confirm discharge plan and assess for any unmet needs. Pt son transporting pt home this afternoon. SW notified Aleida with [facility] of pt discharge, DC paperwork and F2F faxed. Copy placed on pt chart. Pt denies any other needs. Pt son denies any other needs. No other discharge needs identified. Plan: Per pt is medically ready to discharge home via POV with [facility] PT, RN and Bath aid to follow. Pt and pt family denies any other needs. All updated and agreeable to plan. HERACLIO Araya
--- NOTE | 2017-05-18 16:56 | PCM.DC.MED ---
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 Paroxysmal A fib, not rate controlled, present on admission Hypertension, uncontrolled. POA. Acute UTI ruled out, present on admisison, active. Bipolar, POA. History of lung cancer with resection, POA. Consultations Cardiology Procedures XRay, CTs & MRIs CT ANGIO CHEST PULMONARY EMBOLISM IMPRESSION: 1. No evidence of pulmonary embolism. No dissection. 2. No effusions or consolidation. Dictated by: Kaela García M.D. on 05/15/2017 at 15:35 CT BRAIN WITHOUT CONTRAST IMPRESSION: 1. No acute intracranial process. 2. Moderate atrophy and chronic microvascular ischemic changes. Dictated by: Kaela García M.D. on 05/15/2017 at 15:26 X-RAY CHEST ONE VIEW, PORTABLE IMPRESSION: 1. Linear scarring redemonstrated in the right lung base without acute cardiopulmonary disease. Dictated by: Gustavo Alaniz M.D. on 05/15/2017 at 13:21 ECG 12 Lead Sinus tachycardia with LVH Cardiac Echo Impression Interpretation Summary Atrial fibrillation with controlled rate. Normal LV size; midl concentric LVH. Normal wall motion and LV systolic function. EF is 65-70%. LV is hyperdynamic. No significant valvular abnormalities. Mild LA enlargement; otherwise normal chamber sizes. There is incidental note made of atherosclerosis in descending aorta. Compared to prior study 12/31/2016 pt is no longer in sinus rhythm. Otherwise no significant changes have occurred. Invasive Procedures Retrograde left heart catheterization with balloon angioplasty and stenting to the mid circumflex artery Brief History This is a somewhat vague 71-year-old female who presented to the ER today. She checked her blood pressure at home today and had a BP with a systolic of 200. For this reason she came to the emergency department. She does note some intermittent chest pain with a fall 2 days ago. At that time she apparently got up at night to go the bathroom it was dark and she tripped and fell hitting her head. She denies any loss of consciousness from her fall but has been somewhat sore. She does describe a vague chest pain. She cannot say if this pain is positional or pleuritic. It does not seem to get worse with exertion. It does not radiate to the neck or arm. She denies associated cough, palpitations, nausea or diaphoresis. She has no known history of CAD but does have a history of hypertension and atrial fibrillation. She denies any headache. In the ED she was found to have left leg edema and right leg edema which is both chronic for her as well as a relatively normal ECG with elevated troponin. The case was discussed with Dr. De La Garza cardiology and recommendations were made for heparin drip. She denies any chest pain at the time of interview. She also denies nausea, or dyspepsia, or diarrhea. No difficulty with urination , including dysuria or hematuria. Hospital Course Ayana Ponce is a 71-year-old woman with hypertension, paroxysmal atrial fibrillation off warfarin for the past few months, history of lung cancer s/p excision, and bipolar disorder presenting to [facility] for elevated blood pressure. Admitted for NSTEMI. 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 -Troponin T peaked at 1.[address]-segment changes. -EKG shows sinus tachycardia with LVH. -Cardiology consulted in the emergency department. Loading Plavix and heparin ggt initiated. -Continue dual antiplatelets therapy with ASA and Plavix. -Continue beta-blockade and atorvastatin. -Morphine and O2 available PRN. Paroxysmal A fib, not rate controlled, present on admission -Per cardiology's recommendation, patient was resumed on warfarin on 05/17. INR 0.9 at discharge. -Shared-decision making with the patient about resuming anticoagulation and risks of intracranial hemorrhage from frequent falls vs. stop Warfarin and increased risks of stroke. Patient opted to start anticoagulation, but would like to eat her greens. -Therefore, will start Eliquis. 30-day trial Coupon for Eliquis given to the patient at discharge. -Continue metoprolol to 50 mg BID. Hypertension, uncontrolled. POA. -Continue Metoprolol. -Continue Lisinopril to 40mg, Amlodipine 5mg Acute UTI ruled out, present on admisison, active. -Culture presented with normal brandt. -Will stop antibiotics Bipolar, POA. -Resume home Topamax and Abilify. History of lung cancer with resection, POA. -Resume stable. Follow up as outpatient. Code status: FULL, confirmed with the patient. Inpatient status, length of stay over 2 nights. Exam Vital Signs (Last) Date Time Temp Pulse Resp B/P Pulse Ox O2 Delivery O2 Flow Rate FiO2 05/18/17 08:36 78 05/18/17 08:00 36.4 24 101/57 95 Room Air Exam General: Alert and oriented 3. No distress. Fluent speech. Restricted affect , slow to speak and slow to answer questions. HEENT: NCAT, Normal skull. PEERLA, EOMI. Anicteric sclera, symmetric pupils. Oropharynx is unremarkable. Neck: supple, normal thyroid. No adenopathy. Lungs: clear, shallow effort, no wheezes or rales noted. Heart: regular rate and rhythm without murmur gallop or rub. Abdomen: soft, nondistended, and nontender. Normoactive bowel sound. Extremities: Bilateral mild nonpitting edema, said to be chronic.Good radial and pedal pulses. Groin: mild ecchymoses of right groin. Neuro: Cranial nerves are grossly normal. Motor strength is normal in all extremities. Normal muscular tone. Psych: appears depressed with restricted affect. No hallucinations. Test 05/15/17 13:10 05/15/17 23:00 05/16/17 03:50 05/16/17 10:20 Neutrophils (%) (Auto) 62.1% (40-74) Lymphocytes (%) (Auto) 24.5% (14-46) Monocytes (%) (Auto) 11.4% (4-12) Eosinophils (%) (Auto) 1.2% (0-5) Basophils (%) (Auto) 0.6% (0-3) Pro-B-Type Natriuretic Peptide 1448pg/mL (0-301) Urine Color Yellow (YELLOW) Urine Appearance Hazy (CLEAR,HAZY) Urine pH 6.0 (5.0-8.0) Urine Specific [place] 1.010 (1.003-1.035) Urine Protein Negativemg/dL (NEG,TRACE) Urine Glucose (UA) Negativemg/dL (NEGATIVE) Urine Ketones Negativemg/dL (NEGATIVE) Urine Occult Blood Negative (NEGATIVE) Urine Nitrite Negative (NEGATIVE) Urine Bilirubin Negative (NEGATIVE) Urine Urobilinogen Normalmg/dL (NORMAL) Urine Leukocyte Esterase Large (NEGATIVE) Urine RBC 0-2/hpf (0-2) Urine WBC 11-50/hpf (0-5) Urine Epithelial Cells Occasional/hpf (NONE-MOD) Urine Crystals None seen (NONE SEEN) Urine Bacteria Moderate/hpf (NONE-FEW) Urine Hyaline Casts None/lpf (NONE) Urine Granular Casts None seen (NONE SEEN) Urine Waxy Casts None seen (NONE SEEN) Urine Red Blood Cell Casts None seen (NONE SEEN) Urine White Blood Cell Casts None seen (NONE SEEN) Urine Mucus None seen (None Seen) Urine Trichomonas None seen (NONE SEEN) Urine Yeast None (NONE SEEN) Urinalysis Comment None Urine Culture Reflexed Indicated Total Bilirubin 0.4mg/dL (0.0-1.2) Aspartate Amino Transf (AST/SGOT) 47U/L (0-50) Alanine Aminotransferase (ALT/SGPT) 15U/L (0-32) Alkaline Phosphatase 77U/L (25-165) Total Protein 5.8g/dL (6.4-8.4) Albumin 3.0g/dL (3.4-5.0) Triglycerides Level 50mg/dL (0-149) Cholesterol Level 144mg/dL (100-199) LDL Cholesterol, Calculated 65.000mg/dL (0-99) VLDL Cholesterol 10.000mg/dL HDL Cholesterol 69mg/dL (>39) Cholesterol/HDL Ratio 2.09 (0.0-4.4) Activated Partial Thromboplast Time 81.2sec (22.8-33.0) Test 05/17/17 03:00 05/18/17 02:40 White Blood Count 5.9th/mm3 (3.8-10.1) Red Blood Count 3.89mil/mm3 (3.90-5.20) Hemoglobin 11.4g/dL (12.0-15.6) Hematocrit 36.6% (35.0-46.0) Mean Corpuscular Volume 94.1fL (81-100) Mean Corpuscular Hemoglobin 29.3pg (27.0-35.0) Mean Corpuscular Hemoglobin Concent 31.1% (32.0-37.0) Red Cell Distribution Width 15.8% (12.3-15.4) Platelet Count 165bil/L (150-400) Magnesium Level 1.7mg/dL (1.6-2.6) Troponin T 0.731ug/L (0.0-0.011) Prothrombin Time 10.5sec (8.1-12.5) Prothromb Time International Ratio 0.98ratio Sodium Level 142mEq/L (134-144) Potassium Level 4.1mEq/L (3.5-5.2) Chloride Level 112mEq/L (97-108) Carbon Dioxide Level 17mmol/L (18-29) Blood Urea Nitrogen 21mg/dL (8-27) Creatinine 0.81mg/dL (0.57-1.00) Estimat Glomerular Filtration Rate 99mL/min (>59) Glucose Level 117mg/dL (60-99) Calcium Level 8.6mg/dL (8.5-10.1) Discharge Medications Discharge Medications Amlodipine (Amlodipine) 5 Mg Tablet 5 MG PO DAILY Prescribed by: SATURNINO FIGUEREDO DO Apixaban (Eliquis) 5 Mg Tablet 5 MG PO BID Prescribed by: SATURNINO FIGUEREDO DO Aripiprazole (Abilify) 2 Mg Tablet 2 MG PO HS (Reported) Aspirin (Aspirin) 81 Mg Tablet 81 MG PO DAILY (Reported) Atorvastatin Calcium (Atorvastatin Calcium) 40 Mg Tablet 40 MG PO HS Prescribed by: SATURNINO FIGUEREDO DO Clopidogrel (Clopidogrel) 75 Mg Tablet 75 MG PO DAILY Prescribed by: SATURNINO FIGUEREDO DO Lisinopril (Lisinopril) 40 Mg Tablet 40 MG PO DAILY Prescribed by: SATURNINO FIGUEREDO DO Melatonin/Pyridoxine (Melatonin 5 mg Tablet) 1 Each Tablet 1 EACH PO HS ( Reported) Metoprolol Tartrate (Metoprolol Tartrate) 25 Mg Tablet 50 MG PO BID Prescribed by: SATURNINO FIGUEREDO DO Potassium Chloride ER (Klor-Con 10) 10 Meq Tablet 10 MEQ PO DAILY (Reported) Quetiapine Fumarate (Seroquel) 300 Mg Tablet 300 MG PO HS (Reported) Topiramate (Topiramate) 50 Mg Tablet 50 MG PO QAM (Reported) Topiramate (Topiramate) 50 Mg Tablet 100 MG PO QPM (Reported) Additional med instructions There are a few changes to your medications: - We increased the Lisinopril from 30 mg to 40mg. Stop taking the 30mg at home and start taking the new dose once daily. - We also increased the Metoprolol from 25mg to 50mg twice daily. - Take Plavix 75mg once daily. Continue the Aspirin 81mg daily. - Take Amlodipine 5mg once daily. - Take Atorvastatin 40mg daily. - Get the 30-day trial of Eliquis from your pharmacy and ask your primary care worker to get the insurance authorization for further refills. - Resume other home medications. Followup Plan Disposition: Home Discharge Diet: Heart Healthy Discharge Activity: Home Health Phyical Therapy Patient Instructions - You were found to have a blockage in one of the heart artery and a stent was placed to clear to blockage. - There are a few changes to your medications. Please take them as directed. - We discussed about the risks and benefits of being on blood thinner vs. not on it. You agreed with resuming the blood thinner as you are more concerned of your risks of stroke. - Because you would like an unrestricted diet with more green, Eliquis might be a better option than the Warfarin. This drug is expensive if your insurance does not pay for it. However, we will give you a coupon for 30-day free trial. You can bring the coupon to your pharmacy to get the medication. If you insurance does not pay for it, please discuss with your doctor to see if you can switch to Warfarin instead. - You will get home david with physical therapy, nursing care, and bath aids for 4 weeks. If you need longer care, you will need to discuss with your primary care doctor. - Please follow up with your primary care doctor in 1 week. - You will need to follow up with a salesperson women's hats in 3-4 weeks as well. You can get the referral from your primary care doctor. - Continue to check your blood pressure daily. - If you develop chest pain, shortness of breath, headache, nausea, vomiting, or change in mental status, please go to the ER. Follow-up Provider: Surendra Barrientos MD Follow-up with PCP in: 1 week Attending Statement I interviewed and examined the patient on rounds and agree with the plan above. copies to: Bal,Saturnino Rider MD, DO May 18, 2017 16:56 Stan Morris MD May 19, 2017 10:19
[2017-05-18] MEDS ORDERED: Warfarin 5 MG, Warfarin 2.5 MG PO ONE ×2 (17:00)
== END 2017-05-18 13:50 | disposition home health service (06) | DRG 247 ==
LOC: SED 12:52 → PCC 16:53
PROVIDERS: ADMIT Hospitalist; ATTEND Hospitalist
PROC: 027034Z Dilation of Coronary Artery, One Artery with Drug-eluting Intraluminal Device, Percutaneous Approach (ICD-10-PCS; principal; 2017-05-16)
PROC: 4A023N7 Measurement of Cardiac Sampling and Pressure, Left Heart, Percutaneous Approach (ICD-10-PCS; 2017-05-16)
PROC: B2111ZZ Fluoroscopy of Multiple Coronary Arteries using Low Osmolar Contrast (ICD-10-PCS; 2017-05-16)
PROC: B2151ZZ Fluoroscopy of Left Heart using Low Osmolar Contrast (ICD-10-PCS; 2017-05-16)
DX: I21.4 Non-ST elevation (NSTEMI) myocardial infarction (principal); I16.1 Hypertensive emergency; Z85.89 Personal history of malignant neoplasm of other organs and systems; Z85.118 Personal history of other malignant neoplasm of bronchus and lung; F31.9 Bipolar disorder, unspecified; I48.0 Paroxysmal atrial fibrillation; I10 Essential (primary) hypertension; Z87.891 Personal history of nicotine dependence; W01.10XA Fall on same level from slipping, tripping and stumbling with subsequent striking against unspecified object, initial encounter; Y93.89 Activity, other specified; Y92.019 Unspecified place in single-family (private) house as the place of occurrence of the external cause